=== PATIENT | male | born 1975 | race Caucasian/White ===

== ENCOUNTER 2022-01-16 12:22 | Outpatient (REF) | payer BC, SELFPAY ==
--- NOTE | ~2022-01-16 | XR_ITS ---
EXAMINATIONS: XR KNEE, LEFT XR KNEES AP STANDING CLINICAL INFORMATION: Knee pain. COMPARISON: None TECHNIQUES: AP bilateral standing view of the knees was obtained. Additional sunrise and lateral views of the left knee. FINDINGS: No significant fracture or joint effusion identified. Joint spaces appear preserved. Alignment is anatomic. The soft tissues appear unremarkable. XR/XR knee RT 2V IMPRESSION: Unremarkable plain film examinations of the knees, as above.
--- NOTE | ~2022-01-16 | XR_ITS ---
EXAMINATIONS: XR KNEE, LEFT XR KNEES AP STANDING CLINICAL INFORMATION: Knee pain. COMPARISON: None TECHNIQUES: AP bilateral standing view of the knees was obtained. Additional sunrise and lateral views of the left knee. FINDINGS: No significant fracture or joint effusion identified. Joint spaces appear preserved. Alignment is anatomic. The soft tissues appear unremarkable. XR/XR knee standing BI IMPRESSION: Unremarkable plain film examinations of the knees, as above.
== END 2022-01-16 12:23 | disposition home or self-care (01) ==
LOC: HO.HOSX 12:22
PROVIDERS: Visit Provider Orthopaedic Surgery
DX: M25.562 Pain in left knee (principal); M25.561 Pain in right knee; M23.8X2 Other internal derangements of left knee
CPT/HCPCS: 73560; 73565

== ENCOUNTER 2022-02-05 18:03 | Outpatient (REF) | payer BC, SELFPAY ==
--- NOTE | ~2022-02-05 | MR_ITS ---
EXAMINATION: MR KNEE WITHOUT CONTRAST, RIGHT CLINICAL INFORMATION: Right knee pain and swelling. Medial collateral ligament injury in 2018. Medial/anterior pain. Pop with extension. Evaluate for internal derangement. COMPARISON: Outside right knee MRI dated 07/28/2018. Right knee radiographs dated 01/16/2022. TECHNIQUE: MRI of the knee without contrast was performed using routine sequences on a high-field scanner. FINDINGS: MENISCI: Medial Meniscus: Intact. Lateral Meniscus: Mild inner margin fraying of the meniscal body and posterior root, new when compared to the prior MRI. LIGAMENTS: Cruciate: Intact. Collateral: Thickening of the medial collateral ligament consistent with a remote injury. Resolution of the previously seen edema. No evidence of acute ligament injury. Intact fibular collateral ligament. EXTENSOR MECHANISM: Intact quadriceps and patellar tendons. Small amount of subcutaneous fluid measuring 3.3 cm in cranial caudal dimension with mild adjacent subcutaneous edema, consistent with prepatellar bursitis. Findings are new when compared to the prior MRI. ARTICULAR CARTILAGE/BONE: Patellofemoral Compartment: Mild central trochlear articular cartilage thinning and signal heterogeneity. Tiny marginal osteophytes. Findings are new when compared to the prior MRI. Medial Compartment: Intact articular cartilage. Lateral Compartment: Intact articular cartilage. JOINT FLUID AND BURSAE: Trace joint effusion. MR/MR knee RT wo con IMPRESSION: 1. Mild inner margin fraying of the lateral meniscal body and posterior root, new when compared to the prior MRI. 2. Remote, resolved medial collateral ligament injury. No evidence of acute ligament injury. 3. Mild prepatellar bursitis, new when compared to the prior MRI. 4. Mild patellofemoral compartment arthrosis, new when compared to the prior MRI. Trace joint effusion.
== END 2022-02-05 18:04 | disposition home or self-care (01) ==
LOC: HO.MRI 18:03
PROVIDERS: Visit Provider Orthopaedic Surgery
DX: M23.8X1 Other internal derangements of right knee (principal)
CPT/HCPCS: 73721

== ENCOUNTER → 2022-02-17 14:32 | Outpatient (BNVA) | payer BC, SELFPAY | PROVIDERS: PCP Internal Medicine; Visit Provider Orthopaedic Surgery | DX: S83.411D Sprain of medial collateral ligament of right knee, subsequent encounter (principal) | CPT/HCPCS: 20610; J1100 ==

== ENCOUNTER 2022-06-03 06:31 | Outpatient (REF) | payer BC, SELFPAY ==
--- NOTE | ~2022-06-03 | FL_ITS ---
EXAMINATION: XR FLUOROSCOPY WITH IMAGES CLINICAL INFORMATION: Pain in right knee COMPARISON: 02/05/2022 TECHNIQUE: Fluoroscopy Supervised By: Dr. Sebastien Mckenzie. Fluoroscopy Time: 0.2 minutes. Cumulative Dose: 2.49 mGy. DAP: 0.681 Gycm2. Images: 2. FL/FL guidance in treatment room FINDINGS/IMPRESSION: Lateral spot images of the knee show needles projecting over the distal femur and proximal tibia.
== END 2022-06-03 06:32 | disposition home or self-care (01) ==
LOC: CF 06:31
PROVIDERS: Visit Provider Anesthesiology
DX: M17.11 Unilateral primary osteoarthritis, right knee (principal)
CPT/HCPCS: 64454; J2795; Q9965; Q9967

== ENCOUNTER → 2022-06-05 08:38 | Outpatient (BNVA) | payer BC, SELFPAY | PROVIDERS: Visit Provider Nurse Practitioner Family | DX: M17.11 Unilateral primary osteoarthritis, right knee (principal) ==

== ENCOUNTER 2022-07-10 10:23 | Day surgery (SDC) | payer BC, SELFPAY ==
[2022-07-03 15:47] VITALS: BMI 30.6
--- NOTE | ~2022-07-10 | FL_ITS ---
EXAMINATION: XR FLUOROSCOPY WITH IMAGES CLINICAL INFORMATION: Right geniculate nerve cool RFA. COMPARISON: Right knee radiographs 01/16/2022 TECHNIQUE: Fluoroscopy Supervised By: Dr. Sebastien Mckenzie. Fluoroscopy Time: 0.4 minutes. Cumulative Dose: 2.41 mGy. DAP: 0.658 Gycm2. Images: 2. FINDINGS: There are needles/electrodes adjacent to the distal femoral shaft, medial and lateral sides, mid depth. There is a spinal needle adjacent to the proximal tibia on medial side mid depth. FL/FL guidance in OR IMPRESSION: Fluoroscopy for pain management procedures.
[2022-07-10 10:30] VITALS: BP 119/85; PULSE 77; RESP 18; TEMP 36.1; O2SAT 97
--- NOTE | 2022-07-10 10:38 | PC.NURSE ---
NI MEDS TAKEN TODAY
[2022-07-10 10:56] LABS: Prothrombin Time 11.7 SEC (10.0-13.1)
--- NOTE | 2022-07-10 11:53 | MHC.SHP ---
Pre-Procedural Eval Section A Date of Service: 07/10/22 The patient is an INPATIENT: No Changes since office visit: Yes Patient answered all questions The History & Physical has been completed within 30 days and I have reviewed it.: No Section B Chief Complaint: Pain in right knee,Unilateral primary osteoarthrit Relevant Family History (Specify if Yes): No Relevant Social History: None Present Medications: see Short Stay Collaborative assessment Medical History: No relevant PMH History of Previous Operations: No relevant previous surgery Allergies: Allergies Allergy/AdvReac Type Severity Reaction Status Date / Time No Known Allergies Allergy Verified 07/03/22 15:43 Review of Systems Sugical H&P ROS: Negative: Constitution, Cardiovascular, Respiratory, Neurological, Psychiatric, Hem-Onc, Allergic/Immunologic, Gastrointestinal, Genitourinary, Musculoskeletal, Integumentary, Endocrine and Eyes/Ears/Nose/Throat Exam Surgical H&P Exam: Normal: HEENT, Normal: Heart, Normal: Lungs, Normal: Extremities, Normal: Abdomen, Normal: Skin and Normal: Neurological Plan Diagnosis/Plan: Unchanged I have reviewed the history and physical and performed a pertinent physical examination on my patient. No changes have occurred unless specified. Time Spent With Patient Time: Total time managing care of this patient today ____ minutes.
[2022-07-10 12:59] VITALS: BP 106/65; PULSE 69; RESP 14; TEMP 36.8; O2SAT 94
--- NOTE | 2022-07-10 13:02 | P.BOP_ITS ---
Brief Operative Note Date of Service: 07/10/22 Pre-op diagnosis: right knee pain Post-op diagnosis: same Procedure: RFA right genicular nerves Surgeon: Sebastien Mckenzie MD Anesthesia: MAC Was an Road Mixer Operator used for this Procedure?: No Estimated blood loss (mL): 1 Condition: stable Disposition: PACU
--- NOTE | 2022-07-10 13:10 | W.PM.OPN ---
Operative Note Operative Note Date of Service: 07/10/22 Narrative: Right KNEE GENICULAR NERVES COOLED RFA. Informed consent was obtained , the patient was brought to the OR and positioned supine on ORT. Time-out was performed delineating correct site, side, the nature of the procedure, patient's allergy, preoperative antibiotic if needed. All operating room staff was participating in OR time-out procedure. C-arm was brought over the operating field and picture of the right knee was demonstrated on the screen. Anterolateral and anteromedial surfaces of the knee were prepped with chloroprep and draped with sterile utility towels. The point of interest were delineated for: superior lateral genicular nerve as the confluence of the metaphysis of the femur with corresponding diaphysis on the lateral silhouette of the femur distal bone,For superior medial genicular nerve (suprapatelar saphenous nerve) the point of interest was delineated as the confluence of the silhouette of the metaphysis of the femur with corresponding diaphysis on the medial silhouette on the femoral distal bone. For inferior medial genicular nerve ( Infrapatellar saphenous nerve) the point of interest was delineated as the confluence of metaphysis of the proximal tibia on the medial side with corresponding diaphysis of the same bone. The projections of the points of interest on anterior surface of the right knee was injected with small amount of mixture of lidocaine 1% and ropivacaine 2% 1-to 2 ml. After that 3 cooled radiofrequency canulas 50 mm long were driven to the point of interest in tunnel vision fashion. When needles gently contacted the bones the position of the C-arm was switched to the lateral view, care was taken to superimpose the the femoral condyles of the knee one over the other. The position of the canulas were adjusted to assure that the tip of the canulas are located at the mid shaft of each of the above described bones. After that small amount of mixture of the same local anesthetic mixture as above and a trace amount of kenalog was injected into each canula position. total amount of local anesthetics was 4.5 cc. The cooled RFA machine was connected to the canulas in usual fashion and energy applied with temperature of the canulas of 60 degrees C, for the 2.5 minutes. When energy application was completed the canulas were removed and sterile dressing was applied. Patient went to PACU where he recovered uneventfully.
[2022-07-10 13:13] VITALS: BP 112/75; PULSE 64; RESP 16; O2SAT 94
[2022-07-10 13:28] VITALS: BP 129/78; PULSE 62; RESP 16; O2SAT 96
[2022-07-10 13:43] VITALS: BP 125/85; PULSE 65; RESP 16; TEMP 36.2; O2SAT 97
--- NOTE | 2022-07-10 13:49 | P.CONAN_ITS ---
HPI - Anesthesia Eval Consult details Narrative: 47-year-old male presenting for radiofrequency ablation of the right genicular nerves under anesthesia PMF Active Problems Active Problems: All Active Problems (Updated 07/03/22 @ 15:31 by Kaycee Page RN) Other internal derangements of right knee (Acute) Grade 1 injury of medial collateral ligament of right knee (Acute) Osteoarthritis of right knee (Acute) Right knee pain (Acute) Past Medical History Medical History Antiphospholipid syndrome Decreased hearing of both ears GERD (gastroesophageal reflux disease) History of tinnitus Hypercholesteremia Hypertension On anticoagulant therapy Psoriasis Seasonal allergies Smoker TIA (transient ischemic attack) Family History Family history of problems with anesthesia: No Surgical History Surgical History History of appendectomy History of hemorrhoidectomy History of vasectomy History of Problems with Anesthesia: No Social History Social History Patient Tobacco Use Status: Current everyday Tobacco user Tobacco use type: Cigarette Cigarette Packs Per Day: 0.5 Cigarettes Per Day: 10.0 Patient Given Instructions on How to Stop Smoking: Yes Date Education Initiated: 07/03/22 Second Hand Smoke Exposure: Yes Have you been hit, kicked, punched, or otherwise hurt by someone within the past year? 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 Meds Allergies Allergy/AdvReac Type Severity Reaction Status Date / Time No Known Allergies Allergy Verified 07/03/22 15:43 Home Medications Medication Instructions Recorded Confirmed Last Taken Type adalimumab 40 mg/0.8 mL 40 mg subcut Q2W 01/16/22 07/03/22 07/06/22 History subcutaneous syringe kit (Humira) losartan 25 mg tablet 25 mg PO DAILY 01/16/22 07/03/22 07/09/22 History atorvastatin 80 mg tablet 80 mg PO DAILY 04/24/22 07/03/22 07/09/22 History ezetimibe 10 mg tablet 10 mg PO DAILY 04/24/22 07/03/22 07/09/22 History hydrocortisone acetate 25 mg 25 mg SD BID 04/24/22 07/03/22 Unknown History rectal suppository (Anucort-HC) warfarin 10 mg tablet 10 mg PO DAILY 04/24/22 07/03/22 06/27/22 History warfarin 7.5 mg tablet 7.5 mg DIRECTED 07/03/22 07/03/22 06/27/22 History Exam Exam Date and Time: July 10, 2022 1349 Height,Weight and Vital Signs: Height 5 ft 9 in Weight 207 lb 3.752 oz Last Vital Signs Temp 97.2 F 07/10/22 13:43 Pulse 65 07/10/22 13:43 Resp 16 07/10/22 13:43 BP 125/85 07/10/22 13:43 Pulse Ox 97 07/10/22 13:43 O2 Del Method 07/10/22 13:43 Pertinent Lab Results Pertinent Lab Results: Laboratory Tests 07/10/22 10:40 PT 11.7 INR 1.0 Airway Mallampati Class: III TM Dist: >3cm Neck ROM: Full Loose/Missing/Broken Teeth: Yes Assessment and Plan Assessment Anesthesia Assessment: Anesthesia Plan Discussed and Chart Reviewed Final Anesthetic Review Family History of Problems with Anesthesia: No History of Problems with Anesthesia: No NPO: Yes ASA Class: III Final Preanesthetic Review: No Changes in Pt Med Stat, Meds/Allgs Chart Reviewed, Consent Obtained/Reviewed and Anes Risks/Benef Reviewed Patient Risk: Intermediate Procedure Risk: Low Anesthetic Plan Anesthetic Plan: MAC: Disposition: Standard PACU
== END 2022-07-10 14:41 | disposition home or self-care (01) ==
PROVIDERS: Anesthesiology; PCP Internal Medicine; Visit Provider Anesthesiology
PROC: (CPT 64624; principal; 2022-07-10 12:20)
DX: M25.561 Pain in right knee (principal); M17.11 Unilateral primary osteoarthritis, right knee; I10 Essential (primary) hypertension; E78.00 Pure hypercholesterolemia, unspecified; D68.61 Antiphospholipid syndrome; Z86.73 Personal history of transient ischemic attack (TIA), and cerebral infarction without residual deficits; Z79.01 Long term (current) use of anticoagulants; Z79.899 Other long term (current) drug therapy; F17.210 Nicotine dependence, cigarettes, uncomplicated
CPT/HCPCS: 64624; 36415; 85610; J2250; J2795; J3010; J3301; Q9965; Q9967

== ENCOUNTER → 2022-08-13 15:23 | Outpatient (BNVA) | payer BC, SELFPAY | PROVIDERS: PCP Internal Medicine; Visit Provider Anesthesiology | DX: Z13.89 Encounter for screening for other disorder (principal) ==

== ENCOUNTER 2024-07-18 14:42 | Outpatient (AMB) | payer BC, SELFPAY ==
--- NOTE | 2024-07-18 14:59 | A.OFFVIS_ITS ---
Intake Visit Reasons: OV-Right knee pain/Weight bearing limited Intake Note: Juan is a 49 year old male who presents today for a follow up of his right knee OA. He was last seen with us in February of 2022 - where he was referred to pain management. He had a right GNB - 06/03/22. Was last seen with them in 2022 w here they discussed the possibility of PRP but has not booked a follow up with them. Currently reports that he is having pain continued and worsening pain mostly with ambulating stairs, when going down stairs he is feeling a pop and shooting pains. He is having sensations of instability - he does not use a knee brace. . MRI done in 2021: IMPRESSION: 1. Mild inner margin fraying of the lateral meniscal body and posterior root, new when compared to the prior MRI. 2. Remote, resolved medial collateral ligament injury. No evidence of acute ligament injury. 3. Mild prepatellar bursitis, new when compared to the prior MRI. 4. Mild patellofemoral compartment arthrosis, new when compared to the prior MRI. Trace joint effusion. Allergies No Known Allergies Allergy (Verified 08/13/22 15:57) HPI HPI OV-Right knee pain/Weight bearing limited: Details: Juan continues to describe right knee pain. The pain is anteromedial at the medial aspect of the PFJ. 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 He has had pain management intervention which was not helpful as well as a steroid injection which was only minimally helpful. [facility] Medical History Antiphospholipid syndrome Decreased hearing of both ears GERD (gastroesophageal reflux disease) History of tinnitus Hypercholesteremia Hypertension On anticoagulant therapy Psoriasis Seasonal allergies Smoker TIA (transient ischemic attack) Surgical History History of appendectomy History of hemorrhoidectomy History of vasectomy Social History Patient Tobacco Use Status: Current everyday Tobacco user Tobacco use type: Cigarette Cigarette Packs Per Day: 0.5 Cigarettes Per Day: 10.0 Second Hand Smoke Exposure: Yes Current occupational status: employed 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 He his on high doses of statins and has psoriasis on Humira. 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 I recommend gel viscosupplementation. Coding Level of Care Code Est Pt Level 3 (75611) Diagnoses Osteoarthritis of patellofemoral joint M17.10
== END 2024-07-18 15:38 | disposition home or self-care (01) ==
PROVIDERS: PCP Internal Medicine; Visit Provider Orthopaedic Surgery
DX: M17.11 Unilateral primary osteoarthritis, right knee (principal)
CPT/HCPCS: 99213